=== PATIENT | male | born 1955 | race Caucasian/White ===

== ENCOUNTER 2020-02-02 02:55 | Inpatient (IN) | payer OTHER ==
[~2020-02-02] VITALS: Ht 182.9 cm; Wt 124.2 kg
[2020-02-02 03:00] VITALS: BP 128/89
[2020-02-02] MEDS ORDERED: VITA25006 PO (04:06)
[2020-02-02] MEDS ORDERED: sertaline (04:06)
[2020-02-02] MEDS ORDERED: EMPA10TA PO (04:06)
[2020-02-02] MEDS ORDERED: METF10007 PO (04:06)
[2020-02-02] MEDS ORDERED: CYAN25008 PO (04:06)
[2020-02-02] MEDS ORDERED: lisinopril (04:06)
[2020-02-02] MEDS ORDERED: atorvastatin (04:06)
[2020-02-02] MEDS ORDERED: OMEG100021 PO (04:06)
[2020-02-02] MEDS ORDERED: INSU100V13 SQ (04:06)
[2020-02-02] MEDS ORDERED: ASPI-630 PO (04:06)
[2020-02-02] MEDS ORDERED: VANCOMYCIN PER PHARMACY MC PRN (06:15)
[2020-02-02] MEDS ORDERED: AZITHRMYCN 500MG IVPB FOR OMNI 250 ML IV ONE (06:15)
--- NOTE | 2020-02-02 06:37 | NUR ---
Pharmacy Vancomycin Dosing Note S:Consulted to monitor and dose vancomycin started 02/02/20. O:CORNELIO HOLLAND is a 64 year old M with CAP . Height: 6 feet, 0 inches Weight: 124.2 kg [place] Body Weight: 77.60 Adjusted Body Weight: 96.16 Dosing Weight: Actual Other Antibiotics: AZITHROMYCIN 250 MG DAILY ZOSYN 3.375 GM Q6H LABS: Last BUN: 16 Last Creatinine: 0.9 Creatinine Clearance: >100 mL/min Last WBC: 7.6 Last Procalcitonin: Tmax (past 24 hours): Microbiology: I/O: Drug Levels: Last level: on at Last dose given 02/02/20 at 0800 Vancomycin Dosing: Loading Dose: 2000 mg x1 Dosing Weight: Actual Target Trough: 15-20 A: Based on: WT AND CRCL P: 1. Begin Vancomycin 1500 mg IV q8h 2. Follow up Trough level on 02/03/20 at 0730 3. Pharmacy will continue to monitor, follow and adjust therapy as needed. GUERLINE GARNER RPH, 02/02/20 [facility] Signed: 02/02/20 at 0637 by GUERLINE GARNER RPH PHA
[2020-02-02] MEDS: PIPERACILLIN/TAZOBACTAM 3.375 GM in IV NORMAL SALINE 50ML 50 ML IV SCH ×3 (07:00→17:30)
[2020-02-02 07:18] VITALS: BP 156/70
[2020-02-02] MEDS ORDERED: VANCOMYCIN 2 GM in IV NORMAL SALINE 500ML BAG 500 ML IV ONE (08:00)
[2020-02-02 08:40] VITALS: BP 156/70
[2020-02-02] MEDS ORDERED: FLU VACC QS 2020-21(6MOS+)/PF 0.5 ML SYRINGE. VAX IM ONE (09:00)
[2020-02-02] MEDS ORDERED: AZITHROMYCIN 500 MG in IV NORMAL SALINE 250ML 250 ML IV ONE (09:00)
[2020-02-02] MEDS: DEXAMETHASONE SOD PHOS 4 MG/ML VIAL IVP SCH (09:04)
[2020-02-02] MEDS ORDERED: DEXTROSE 50% 25 GM / 50ML DISP.SYRIN. IV PRN (10:30)
[2020-02-02 11:32] VITALS: BP 135/63
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
[2020-02-02] MEDS: guaiFENesin DM 200MG/20MG 10 ML SYRUP PO PRN ×2 (12:36→21:07)
[2020-02-02] MEDS: ACETAMINOPHEN 325 MG TABLET. PO PRN (12:36)
[2020-02-02] MEDS: INSULIN LISPRO 300 UNITS/3 ML VIAL. SQ SCH ×2 (12:49→17:32)
[2020-02-02 15:24] VITALS: BP 136/57
[2020-02-02] MEDS ORDERED: VANCOMYCIN 1.5 GM in IV NORMAL SALINE 500ML BAG 500 ML IV SCH (16:00)
--- NOTE | 2020-02-02 16:02 | PDOC ---
PULMONARY PROGRESS NOTES DATE: 02/02/20 TIME: 16:02 Vitals Vital Signs Date Time Temp Pulse Resp B/P (MAP) Pulse Ox O2 Delivery O2 Flow Rate FiO2 02/02/20 15:24 98.4 62 22 136/57 (83) 93 Nasal Cannula 4.0 98.4 Labs Laboratory Tests Test 02/02/20 07:56 02/02/20 10:37 02/02/20 16:00 Glucose (Fingerstick) 142 mg/dL (70-99) 176 mg/dL (70-99) 275 mg/dL (70-99) Laboratory Tests Test 02/02/20 07:56 02/02/20 10:37 02/02/20 16:00 Glucose (Fingerstick) 142 mg/dL (70-99) 176 mg/dL (70-99) 275 mg/dL (70-99) Medications Active Scripts Medications Dose Route/Sig Max Daily Dose Days Date Category [atorvastatin] 02/02/20 Reported Aspirin 81 Mg Tab.chew 81 Mg PO DAILY 02/02/20 Reported Noxifol-D3 2,500 Unit-1 mg Tab (Vitamin D3/Folic Acid) 2,500 Unit Tablet 1 Tab PO DAILY 30 02/02/20 Reported Vitamin B12 (Cyanocobalamin (Vitamin B-12)) 2,500 Mcg Tablet 1 Tab PO DAILY 30 02/02/20 Reported Fish Oil 1,000 mg Softgel ([place]-3/Dha/Epa/Fish Oil) 1,000 Mg Capsule 1,000 Mg PO DAILY 02/02/20 Reported [sertaline] 02/02/20 Reported [lisinopril] 02/02/20 Reported Jardiance (Empagliflozin) 10 Mg Tablet 10 Mg PO DAILY 02/02/20 Reported Metformin Hcl 1,000 Mg Tablet 1,000 Mg PO DAILYWBKFT 02/02/20 Reported Levemir (Insulin Detemir) 100 Unit/1 Ml Vial 65 Unit SQ HS 02/02/20 Reported Impression . Acute hypoxemic respiratory failure, COVID-19 positivity a week ago Agree with current medical management JOSE RECINOS MD Feb 02, 2020 16:02
[2020-02-02] MEDS: ENOXAPARIN 40 MG/0.4 ML SYRINGE. SQ SCH (21:04)
[2020-02-02] MEDS: LACTOBACILLUS RHAMNOSUS GG 1 CAPSULE. PO SCH (21:04)
[2020-02-02 21:11] VITALS: BP 115/65
--- NOTE | 2020-02-02 21:47 | CONS ---
DATE OF CONSULTATION: 02/02/2020 ATTENDING PHYSICIAN: Dr. Macias. CONSULTING PHYSICIAN: Jose Recinos M.D. REASON FOR CONSULTATION: The patient is seen in pulmonary consultation at the request of Dr. Macias for abnormal CT chest revealing ground-glass opacities. HISTORY OF PRESENT ILLNESS: The patient is a 64-year-old that was seen at the [facility] with increasing shortness of breath, nasal congestion and generalized weakness. He was tested SARS-CoV-2. He tested positive. He was not treated with any steroids. The patient presented with increasing shortness of breath at [facility] Emergency Room. He also had a fever and cough. Cough, mostly nonproductive. He was transferred to [place]. He underwent a CT angiogram, which revealed no evidence of pulmonary emboli. It did show ground-glass opacities. The patient had a fever yesterday of 102. He is currently on oxygen supplementation. He does not appear to be septic. He has been given Zithromax and Zosyn. He is also started on dexamethasone. PAST MEDICAL HISTORY: Significant for hypertension, hyperlipidemia, coronary artery disease, status post coronary artery bypass grafting, morbid obesity and obstructive sleep apnea, on CPAP. PAST SURGICAL HISTORY: As above. ALLERGIES: No known drug allergies. FAMILY HISTORY: Noncontributory. SOCIAL HISTORY: He is , lives in a [facility] [place] [facility], has one son, lives in [place]. He does not smoke. REVIEW OF SYSTEMS: As indicated above, otherwise, a 10-point system was reviewed and negative. PHYSICAL EXAMINATION: GENERAL: Morbid obese individual in no respiratory distress. VITAL SIGNS: Once again, he had a fever of 102.0 yesterday. HEENT: Eyes: The sclerae were nonicteric. NECK: Jugular venous distention was not elevated. LUNGS: Adequate flow with no wheezes. CARDIOVASCULAR: Regular rate and rhythm with S1, S2, no S3. ABDOMEN: Soft, obese. EXTREMITIES: No clubbing, cyanosis or edema. NEUROLOGICAL: The patient was awake, alert, following commands. A detailed neuro exam was not performed. LABORATORY DATA: Pending from [facility] revealed a white count of 7600, hemoglobin and hematocrit were noted. D-dimer was slightly elevated. IMPRESSION: 1. Acute hypoxemic respiratory failure. 2. COVID-19 pneumonia. 3. Possible bacterial pneumonia, gram negative/gram-positive. 4. Hypertension. 5. Morbid obesity. 6. [facility] PLAN: 1. Continue current antibiotics. 2. Steroids. 3. Deep venous thrombosis prophylaxis. 4. Oxygen supplementation. 5. Follow clinical course. I do appreciate the privilege in sharing in the patient's care. JOSE RECINOS MD DR: SABINA/gael JOB#: [id number] / [id number]
[2020-02-03] MEDS: PIPERACILLIN/TAZOBACTAM 3.375 GM in IV NORMAL SALINE 50ML 50 ML IV SCH ×4 (00:34→16:59)
[2020-02-03 00:39] VITALS: BP 135/76
[2020-02-03] MEDS: guaiFENesin DM 200MG/20MG 10 ML SYRUP PO PRN ×3 (02:46→19:30)
[2020-02-03 02:50] VITALS: BP 153/73
[2020-02-03 04:12] LABS: HEMATOCRIT 39.8 % (39.0-53.0); HEMOGLOBIN 13.5 g/dL (13.0-17.5); RED BLOOD COUNT 5.07 x10^6/uL (4.30-5.70); RED CELL DISTRIBUTION WIDTH 14.4 % (11.5-14.5); WHITE BLOOD COUNT 8.2 x10^3/uL (4.0-11.0)
[2020-02-03 05:35] LABS: ALBUMIN 2.6 g/dL (3.4-5.0); ALBUMIN/GLOBULIN RATIO 0.6 (1.0-1.7); C-REACTIVE PROTEIN 29.1 mg/L (0-3.3); CALCIUM 8.5 mg/dL (8.5-10.1); CREATININE 0.9 mg/dL (0.7-1.3); GFR 85.2; POTASSIUM 3.9 mmol/L (3.5-5.1); TOTAL BILIRUBIN 0.5 mg/dL (0.2-1.0); TOTAL PROTEIN 6.7 g/dL (6.4-8.2)
[2020-02-03 07:25] VITALS: BP 141/67
--- NOTE | 2020-02-03 07:56 | PDOC ---
Infectious Disease Note Vital Sign Vital Signs Vital Signs Date Time Temp Pulse Resp B/P (MAP) Pulse Ox O2 Delivery O2 Flow Rate FiO2 02/03/20 02:50 97.6 61 24 153/73 (99) 91 Nasal Cannula 4.0 97.6 Labs Lab Laboratory Tests Test 02/02/20 07:56 02/02/20 10:37 02/02/20 16:00 02/03/20 04:00 Glucose (Fingerstick) 142 mg/dL (70-99) 176 mg/dL (70-99) 275 mg/dL (70-99) White Blood Count 8.2 x10^3/uL (4.0-11.0) Red Blood Count 5.07 x10^6/uL (4.30-5.70) Hemoglobin 13.5 g/dL (13.0-17.5) Hematocrit 39.8 % (39.0-53.0) Mean Corpuscular Volume 79 fL (79-100) Mean Corpuscular Hemoglobin 27 pg (25-35) Mean Corpuscular Hemoglobin Concent 34 g/dL (31-37) Red Cell Distribution Width 14.4 % (11.5-14.5) Platelet Count 243 x10^3/uL (140-400) Sodium Level 138 mmol/L (136-145) Potassium Level 3.9 mmol/L (3.5-5.1) Chloride Level 103 mmol/L (98-107) Carbon Dioxide Level 27 mmol/L (21-32) Anion Gap 8 (6-14) Blood Urea Nitrogen 17 mg/dL (8-26) Creatinine 0.9 mg/dL (0.7-1.3) Estimated GFR (Cockcroft-Gault) 85.2 BUN/Creatinine Ratio 19 (6-20) Glucose Level 176 mg/dL (70-99) Calcium Level 8.5 mg/dL (8.5-10.1) Total Bilirubin 0.5 mg/dL (0.2-1.0) Aspartate Amino Transf (AST/SGOT) 32 U/L (15-37) Alanine Aminotransferase (ALT/SGPT) 44 U/L (16-63) Alkaline Phosphatase 34 U/L (46-116) C-Reactive Protein, Quantitative 29.1 mg/L (0-3.3) Total Protein 6.7 g/dL (6.4-8.2) Albumin 2.6 g/dL (3.4-5.0) Albumin/Globulin Ratio 0.6 (1.0-1.7) Objective Assessment Acute hypoxic resp failure o n 4 liter NC COVID + Obesity Fever Plan Plan of Care Cont abx. Azithromycin to po Type and screen as a precaution Check LDH and Tropronin I F/u labs and results Thank you # [id number] OLINDA BRUMFIELD MD Feb 03, 2020 07:56
[2020-02-03] MEDS: AZITHROMYCIN 250 MG TABLET. PO SCH (08:56)
[2020-02-03] MEDS: LACTOBACILLUS RHAMNOSUS GG 1 CAPSULE. PO SCH ×2 (08:56→22:17)
[2020-02-03] MEDS: ACETAMINOPHEN 325 MG TABLET. PO PRN (08:56)
[2020-02-03] MEDS: DEXAMETHASONE SOD PHOS 4 MG/ML VIAL IVP SCH (08:57)
[2020-02-03] MEDS: INSULIN LISPRO 300 UNITS/3 ML VIAL. SQ SCH ×3 (08:58→17:03)
[2020-02-03] MEDS ORDERED: AZITHROMYCIN 250 MG in IV NORMAL SALINE 250ML 250 ML IV SCH (09:00)
[2020-02-03] MEDS: ENOXAPARIN 40 MG/0.4 ML SYRINGE. SQ SCH ×2 (09:00→22:17)
[2020-02-03 11:03] VITALS: BP 145/65
--- NOTE | 2020-02-03 11:37 | PN ---
DATE: 02/03/2020 SUBJECTIVE: The patient is resting, slightly propped up in bed, in no apparent distress, awake, alert. On questioning him, he continued to have cough, is mostly dry. He has also complained of insomnia, but denied any chest pain or shortness of breath. Nursing staff stated that he did desaturate when he goes to sleep, generally maintained his oxygen saturation at 93-94% on 4 liters of oxygen by nasal cannula. PHYSICAL EXAMINATION: GENERAL: When I examined him, he looked well and was clearly in no apparent respiratory distress. No pallor, jaundice, cyanosis or thyromegaly. No jugular venous distention. No lower limb edema. VITAL SIGNS: His heart rate was 64, blood pressure was 141/67, temperature was 98.2, respiratory rate was 22 and oxygen saturation was 91% on 4 liters of oxygen. HEAD, EYES, EARS, NOSE AND THROAT: Showed normocephalic, atraumatic. NECK: Supple. HEART: Showed normal first and second heart sounds. No gallop, rub or murmur. CHEST: Showed central trachea, equal bilateral chest expansion, air entry. I could not really appreciate any crepitation or rhonchi. ABDOMEN: Distended, soft, nontender. NEUROLOGIC: He was sleepy, but arousable. All cranial nerves are intact. He moves extremities without difficulty. His intake over the last 24 hours was 360, output was 400. LABORATORY DATA: As of this morning, his white cell count was 8200, hemoglobin 13.5, hematocrit 39.8, MCV 79 and platelet count 243,000. Serum sodium was 138, potassium 3.9, chloride 103, bicarbonate 27, anion gap of 8, BUN 17, creatinine 0.9, estimated GFR was 85 mL per minute. His glucose was 176, calcium was 8.5. Total bilirubin, AST, ALT, alkaline phosphatase were normal. His C-reactive protein was 29. Total protein 6.7, albumin was 2.6. ASSESSMENT: 1. COVID-19 pneumonia. 2. Acute hypoxic respiratory failure. 3. Hypertension. 4. Hyperlipidemia. 5. Coronary artery disease, status post coronary artery bypass graft surgery. 6. Morbid obesity, obstructive sleep apnea, on CPAP. PLAN: To continue with IV antibiotic. Continue with DVT prophylaxis. Continue to monitor his blood sugar and adjust insulin as needed. CLIFFORD PERALTA MD DR: Lisbeth JOB#: [id number] / [id number]
--- NOTE | 2020-02-03 11:52 | PDOC ---
PULMONARY PROGRESS NOTES DATE: 02/03/20 TIME: 11:50 Subjective Patient is resting comfortably on 5 L nasal cannula He reports some shortness of breath, and a nonproductive cough he denies any chest pain Afebrile overnight No other concerns from nursing Vitals Vital Signs Date Time Temp Pulse Resp B/P (MAP) Pulse Ox O2 Delivery O2 Flow Rate FiO2 02/03/20 11:03 97.1 60 20 145/65 (91) 91 Nasal Cannula 5.0 97.1 ROS: No Nausea, No Chest Pain, No Abdominal Pain, No Increase Cough General: Alert Lungs: Crackles Cardiovascular: S1, S2 Abdomen: Soft, Non-tender Neuro Exam: Alert Extremities: No Edema Skin: Warm, Dry Labs Laboratory Tests Test 02/02/20 07:56 02/02/20 10:37 02/02/20 16:00 02/03/20 04:00 Glucose (Fingerstick) 142 mg/dL (70-99) 176 mg/dL (70-99) 275 mg/dL (70-99) White Blood Count 8.2 x10^3/uL (4.0-11.0) Red Blood Count 5.07 x10^6/uL (4.30-5.70) Hemoglobin 13.5 g/dL (13.0-17.5) Hematocrit 39.8 % (39.0-53.0) Mean Corpuscular Volume 79 fL (79-100) Mean Corpuscular Hemoglobin 27 pg (25-35) Mean Corpuscular Hemoglobin Concent 34 g/dL (31-37) Red Cell Distribution Width 14.4 % (11.5-14.5) Platelet Count 243 x10^3/uL (140-400) Sodium Level 138 mmol/L (136-145) Potassium Level 3.9 mmol/L (3.5-5.1) Chloride Level 103 mmol/L (98-107) Carbon Dioxide Level 27 mmol/L (21-32) Anion Gap 8 (6-14) Blood Urea Nitrogen 17 mg/dL (8-26) Creatinine 0.9 mg/dL (0.7-1.3) Estimated GFR (Cockcroft-Gault) 85.2 BUN/Creatinine Ratio 19 (6-20) Glucose Level 176 mg/dL (70-99) Calcium Level 8.5 mg/dL (8.5-10.1) Total Bilirubin 0.5 mg/dL (0.2-1.0) Aspartate Amino Transf (AST/SGOT) 32 U/L (15-37) Alanine Aminotransferase (ALT/SGPT) 44 U/L (16-63) Alkaline Phosphatase 34 U/L (46-116) Lactate Dehydrogenase 306 U/L (85-227) Troponin I Quantitative < 0.017 ng/mL (0.000-0.055) C-Reactive Protein, Quantitative 29.1 mg/L (0-3.3) Total Protein 6.7 g/dL (6.4-8.2) Albumin 2.6 g/dL (3.4-5.0) Albumin/Globulin Ratio 0.6 (1.0-1.7) Test 02/03/20 07:47 02/03/20 10:15 Glucose (Fingerstick) 165 mg/dL (70-99) 232 mg/dL (70-99) Laboratory Tests Test 02/02/20 16:00 02/03/20 04:00 02/03/20 07:47 02/03/20 10:15 Glucose (Fingerstick) 275 mg/dL (70-99) 165 mg/dL (70-99) 232 mg/dL (70-99) White Blood Count 8.2 x10^3/uL (4.0-11.0) Red Blood Count 5.07 x10^6/uL (4.30-5.70) Hemoglobin 13.5 g/dL (13.0-17.5) Hematocrit 39.8 % (39.0-53.0) Mean Corpuscular Volume 79 fL (79-100) Mean Corpuscular Hemoglobin 27 pg (25-35) Mean Corpuscular Hemoglobin Concent 34 g/dL (31-37) Red Cell Distribution Width 14.4 % (11.5-14.5) Platelet Count 243 x10^3/uL (140-400) Sodium Level 138 mmol/L (136-145) Potassium Level 3.9 mmol/L (3.5-5.1) Chloride Level 103 mmol/L (98-107) Carbon Dioxide Level 27 mmol/L (21-32) Anion Gap 8 (6-14) Blood Urea Nitrogen 17 mg/dL (8-26) Creatinine 0.9 mg/dL (0.7-1.3) Estimated GFR (Cockcroft-Gault) 85.2 BUN/Creatinine Ratio 19 (6-20) Glucose Level 176 mg/dL (70-99) Calcium Level 8.5 mg/dL (8.5-10.1) Total Bilirubin 0.5 mg/dL (0.2-1.0) Aspartate Amino Transf (AST/SGOT) 32 U/L (15-37) Alanine Aminotransferase (ALT/SGPT) 44 U/L (16-63) Alkaline Phosphatase 34 U/L (46-116) Lactate Dehydrogenase 306 U/L (85-227) Troponin I Quantitative < 0.017 ng/mL (0.000-0.055) C-Reactive Protein, Quantitative 29.1 mg/L (0-3.3) Total Protein 6.7 g/dL (6.4-8.2) Albumin 2.6 g/dL (3.4-5.0) Albumin/Globulin Ratio 0.6 (1.0-1.7) Medications Active Scripts Medications Dose Route/Sig Max Daily Dose Days Date Category [atorvastatin] 02/02/20 Reported Aspirin 81 Mg Tab.chew 81 Mg PO DAILY 02/02/20 Reported Noxifol-D3 2,500 Unit-1 mg Tab (Vitamin D3/Folic Acid) 2,500 Unit Tablet 1 Tab PO DAILY 30 02/02/20 Reported Vitamin B12 (Cyanocobalamin (Vitamin B-12)) 2,500 Mcg Tablet 1 Tab PO DAILY 30 02/02/20 Reported Fish Oil 1,000 mg Softgel ([place]-3/Dha/Epa/Fish Oil) 1,000 Mg Capsule 1,000 Mg PO DAILY 02/02/20 Reported [sertaline] 02/02/20 Reported [lisinopril] 02/02/20 Reported Jardiance (Empagliflozin) 10 Mg Tablet 10 Mg PO DAILY 02/02/20 Reported Metformin Hcl 1,000 Mg Tablet 1,000 Mg PO DAILYWBKFT 02/02/20 Reported Levemir (Insulin Detemir) 100 Unit/1 Ml Vial 65 Unit SQ HS 02/02/20 Reported Impression . IMPRESSION: 1. Acute hypoxemic respiratory failure. 2. COVID-19 pneumonia. 3. Possible bacterial pneumonia, gram negative/gram-positive. 4. Hypertension. 5. Morbid obesity. 6. [facility] Plan . PLAN: Continue supplemental oxygen as needed to keep oxygen saturations greater than 92% Continue steroids will need a 10-day course Continue antibiotics, per infectious disease Symptomatic treatment of fever and cough Follow clinical course DVT/GI prophylaxis JOSE RECINOS MD Feb 03, 2020 11:52
--- NOTE | 2020-02-03 12:44 | CONS ---
DATE OF CONSULTATION: 02/03/2020 INFECTIOUS DISEASE CONSULTATION NOTE LOCATION: The patient's room is 670. REQUESTING PHYSICIAN: Jenna Macias MD REASON FOR CONSULTATION: COVID pneumonia. HISTORY OF PRESENT ILLNESS: The patient is a pleasant 64-year-old gentleman who is a of the [employer], was in the [place] from [id number]. Recently, he has been staying in a homeless senior care as he is . He states about 9 days ago, he began to have fever and presented to the [facility] and stated he has got a positive COVID test and then was notified the following Tuesday that he was positive. He states he was isolated in the homeless senior care. He did have cough. It was dry in nature. He had occasional nausea, but he did not have any diarrhea and denies any loss of taste or smell. He began to have worsening symptoms, was evaluated in the Emergency Room over at the [facility] and was subsequently has ended up at [facility]. A chest x-ray showed no acute abnormalities; however, CT scan showed moderate peripheral and basilar prominent ground-glass opacities. He has been placed on azithromycin and Zosyn. He did receive a dose of vancomycin, but the vancomycin has been discontinued. He is also on steroids. Currently, he is sitting upright in bed. He has somewhat of a nagging cough, but is dry. No sinus issues. He denies any previous episodes of pneumonia, UTIs, or skin infections. He denies any tobacco. No vaping. No chest pain. No dysuria, frequency or urgency. PAST MEDICAL HISTORY: Positive for hypertension, hyperlipidemia, morbid obesity, obstructive sleep apnea, also coronary artery disease. PAST SURGICAL HISTORY: Positive for coronary artery bypass grafting. REVIEW OF SYSTEMS: Otherwise negative except for mentioned above. ALLERGIES: No known drug allergies. SOCIAL HISTORY: He is , lives in a homeless senior care. Again, no tobacco, alcohol, or recreational drugs and served in the [employer]. FAMILY HISTORY: Noncontributory. CURRENT MEDICATIONS: Include azithromycin, Zosyn. Again, he received the vancomycin. He is on dexamethasone, Lovenox, guaifenesin, insulin, lactobacillus. PHYSICAL EXAMINATION: VITAL SIGNS: He did have a temperature up to 102, currently 97.6, pulse 61, respirations 24, blood pressure 153/73. He is on 4 liters nasal cannula satting 91%. CONSTITUTIONAL: He is pleasant, cooperative. He is in no acute distress. HEENT: Pupils are equal and reactive. He has normal conjunctivae. Oral cavity, oropharynx was clear. NECK: Supple. Good range of motion. LUNGS: Decreased in the bases. HEART: S1, S2. ABDOMEN: Morbidly obese, soft, nontender, no guarding, no rebound. EXTREMITIES: Without clubbing, cyanosis or gross edema. SKIN: Warm to touch without signs of rash. He does have tattoos. NEUROLOGIC: He is nonfocal. PSYCHIATRIC: Affect is appropriate. LABORATORY VALUES: This morning, white count 8.2, hemoglobin 13.5, platelets of 243. Creatinine of 0.9. AST was 32, ALT 44. C-reactive protein 29.1. There are no radiological studies. IMPRESSION: 1. Acute hypoxic respiratory failure, on 4 liters nasal cannula. 2. COVID positive. 3. Obesity. 4. Fever. RECOMMENDATIONS: For now, we will continue antibiotics, change his IV azithromycin to p.o. We will type and screen him as a precaution in case he begins to rapidly decline and may need plasma. We will also check LDH and troponin I. We will follow up labs. Thank you for allowing me to participate in the patient's care. If you have any questions, please do not hesitate to contact me. OLINDA BRUMFIELD MD DR: ELMA/gael JOB#: [id number] / [id number] URIEL
[2020-02-03 15:15] VITALS: BP 138/74
[2020-02-03 19:15] VITALS: BP 159/75
[2020-02-03] MEDS ORDERED: traZODone 50 MG TABLET. PO PRN (21:45)
[2020-02-04] MEDS: PIPERACILLIN/TAZOBACTAM 3.375 GM in IV NORMAL SALINE 50ML 50 ML IV SCH ×4 (00:57→17:41)
[2020-02-04] MEDS: guaiFENesin DM 200MG/20MG 10 ML SYRUP PO PRN ×3 (00:57→21:36)
[2020-02-04 03:59] VITALS: BP 134/63
[2020-02-04 06:12] LABS: ALBUMIN 2.4 g/dL (3.4-5.0); ALBUMIN/GLOBULIN RATIO 0.6 (1.0-1.7); CALCIUM 8.6 mg/dL (8.5-10.1); CREATININE 1.1 mg/dL (0.7-1.3); GFR 67.6; POTASSIUM 3.6 mmol/L (3.5-5.1); TOTAL BILIRUBIN 0.4 mg/dL (0.2-1.0); TOTAL PROTEIN 6.5 g/dL (6.4-8.2)
[2020-02-04 06:16] LABS: HEMOGLOBIN 13.3 g/dL (13.0-17.5); RED BLOOD COUNT 5.08 x10^6/uL (4.30-5.70); RED CELL DISTRIBUTION WIDTH 14.3 % (11.5-14.5); WHITE BLOOD COUNT 7.9 x10^3/uL (4.0-11.0)
[2020-02-04 07:15] VITALS: BP 144/70
[2020-02-04] MEDS: AZITHROMYCIN 250 MG TABLET. PO SCH (08:28)
[2020-02-04] MEDS: ACETAMINOPHEN 325 MG TABLET. PO PRN (08:28)
[2020-02-04] MEDS: DEXAMETHASONE SOD PHOS 4 MG/ML VIAL IVP SCH (08:28)
[2020-02-04] MEDS: ENOXAPARIN 40 MG/0.4 ML SYRINGE. SQ SCH ×2 (08:28→21:37)
[2020-02-04] MEDS: LACTOBACILLUS RHAMNOSUS GG 1 CAPSULE. PO SCH ×2 (08:28→21:37)
[2020-02-04] MEDS: INSULIN LISPRO 300 UNITS/3 ML VIAL. SQ SCH ×4 (08:43→16:59)
--- NOTE | 2020-02-04 09:00 | PDOC ---
Infectious Disease Note Subjective Subjective Feeling better. No F/C/s/n/V/D Occ cough. Eating ROS ROS o/w neg Vital Sign Vital Signs Vital Signs Date Time Temp Pulse Resp B/P (MAP) Pulse Ox O2 Delivery O2 Flow Rate FiO2 02/04/20 07:15 96.9 59 20 144/70 (94) 90 Nasal Cannula 5.0 96.9 Physical Exam PHYSICAL EXAM CONSTITUTIONAL: He is pleasant, cooperative. He is in no acute distress. Looks HEENT: Pupils are equal and reactive. He has normal conjunctivae. Oral cavity, oropharynx was clear. NECK: Supple. Good range of motion. LUNGS: Decreased in the bases. HEART: S1, S2. ABDOMEN: Morbidly obese, soft, nontender, no guarding, no rebound. EXTREMITIES: Without clubbing, cyanosis or gross edema. SKIN: Warm to touch without signs of rash. He does have tattoos. NEUROLOGIC: He is nonfocal. PSYCHIATRIC: Affect is appropriate. Labs Lab Laboratory Tests Test 02/03/20 10:15 02/03/20 16:02 02/03/20 21:21 02/04/20 05:15 Glucose (Fingerstick) 232 mg/dL (70-99) 253 mg/dL (70-99) 232 mg/dL (70-99) White Blood Count 7.9 x10^3/uL (4.0-11.0) Red Blood Count 5.08 x10^6/uL (4.30-5.70) Hemoglobin 13.3 g/dL (13.0-17.5) Hematocrit 40.0 % (39.0-53.0) Mean Corpuscular Volume 79 fL (79-100) Mean Corpuscular Hemoglobin 26 pg (25-35) Mean Corpuscular Hemoglobin Concent 33 g/dL (31-37) Red Cell Distribution Width 14.3 % (11.5-14.5) Platelet Count 292 x10^3/uL (140-400) D-Dimer (Macy) 0.69 ug/mlFEU (0.00-0.50) Sodium Level 139 mmol/L (136-145) Potassium Level 3.6 mmol/L (3.5-5.1) Chloride Level 104 mmol/L (98-107) Carbon Dioxide Level 25 mmol/L (21-32) Anion Gap 10 (6-14) Blood Urea Nitrogen 15 mg/dL (8-26) Creatinine 1.1 mg/dL (0.7-1.3) Estimated GFR (Cockcroft-Gault) 67.6 BUN/Creatinine Ratio 14 (6-20) Glucose Level 208 mg/dL (70-99) Calcium Level 8.6 mg/dL (8.5-10.1) Total Bilirubin 0.4 mg/dL (0.2-1.0) Aspartate Amino Transf (AST/SGOT) 30 U/L (15-37) Alanine Aminotransferase (ALT/SGPT) 47 U/L (16-63) Alkaline Phosphatase 33 U/L (46-116) Total Protein 6.5 g/dL (6.4-8.2) Albumin 2.4 g/dL (3.4-5.0) Albumin/Globulin Ratio 0.6 (1.0-1.7) Test 02/04/20 07:47 Glucose (Fingerstick) 177 mg/dL (70-99) Objective Assessment Acute hypoxic resp failure on 5 liter NC COVID + Obesity Fever Plan Plan of Care Cont abx. Azithromycin to po Typed and screen as a precaution F/u labs and results OLINDA BRUMFIELD MD Feb 04, 2020 08:59
--- NOTE | 2020-02-04 10:58 | PN ---
DATE: 02/04/2020 SUBJECTIVE: The patient is resting, slightly propped up in bed, in no apparent distress. On questioning him, his main complaint is dry cough. Nursing staff stated that as long as he is resting, his oxygen saturation is 96% on 5 liters; however, whenever he changes his position or stands up or do any exertion his oxygen saturation plummets to 85% or less. The patient himself denied any chest pain. The cough is mostly dry, hacking. PHYSICAL EXAMINATION: GENERAL: When I examined him, he looked well and was clearly in no apparent respiratory distress. No pallor, jaundice, cyanosis or thyromegaly. No jugular venous distention. No limb edema. VITAL SIGNS: His heart rate was 59, blood pressure was 144/70, temperature 96.9, respiratory rate was 20, and oxygen saturation was 90% on 5 liters of oxygen by nasal cannula. HEENT: Showed normocephalic, atraumatic. NECK: Supple. HEART: Showed normal first and second heart sounds. No gallop, rub or murmur. CHEST: Clear to auscultation. No crepitation or rhonchi. ABDOMEN: Distended, soft, nontender. No guarding or rigidity. No organomegaly. All hernial orifice intact. Bowel sounds normal. NEUROLOGIC: He was awake, alert, responding appropriately. All cranial nerves are intact. He moves extremities without difficulty. His intake was 1150, output was 1500. LABORATORY WORK: This morning showed his white cell count was 7900, hemoglobin 13, hematocrit 40, MCV 79 and platelet count 292,000. Serum sodium was 139, potassium 3.6, chloride 104, bicarbonate 25, anion gap of 10, BUN 15, creatinine 1.1, estimated GFR was 68 mL per minute. His glucose was 108, calcium was 8.6. Total bilirubin, AST, ALT, alkaline phosphatase were normal. Total protein was 6.5, albumin 2.4. His D-dimer was 0.69. His C-reactive protein was 29.1 mg/dL. ASSESSMENT: 1. COVID-19 pneumonia. 2. Acute hypoxic respiratory failure. 3. Hypertension. 4. Hyperlipidemia. 5. Coronary artery disease, status post coronary artery bypass graft surgery. 6. Morbid obesity, obstructive sleep apnea, on CPAP. PLAN: To continue with azithromycin. Continue with Lovenox. Continue to monitor his blood sugar and adjust the insulin as needed. Continue with Zosyn. Continue with dexamethasone. CLIFFORD PERALTA MD DR: ANTHONY/gael JOB#: [id number] / [id number]
[2020-02-04 11:16] VITALS: BP 137/70
[2020-02-04] MEDS: ACETAMINOPHEN/CODEINE 300/30MG TABLET. PO PRN ×2 (12:01→21:37)
--- NOTE | 2020-02-04 12:13 | PDOC ---
PULMONARY PROGRESS NOTES DATE: 02/04/20 TIME: 12:12 Subjective Patient is resting comfortably on 5 L nasal cannula Continues to have nonproductive nagging cough, denies shortness of breath Afebrile overnight No other concerns from nursing Vitals Vital Signs Date Time Temp Pulse Resp B/P (MAP) Pulse Ox O2 Delivery O2 Flow Rate FiO2 02/04/20 11:16 97.2 56 22 137/70 (92) 95 Nasal Cannula 5.0 97.2 ROS: No Nausea, No Chest Pain, No Abdominal Pain, No Increase Cough General: Alert Lungs: Crackles Cardiovascular: S1, S2 Abdomen: Soft, Non-tender Neuro Exam: Alert Extremities: No Edema Skin: Warm, Dry Labs Laboratory Tests Test 02/02/20 16:00 02/03/20 04:00 02/03/20 07:47 02/03/20 10:15 Glucose (Fingerstick) 275 mg/dL (70-99) 165 mg/dL (70-99) 232 mg/dL (70-99) White Blood Count 8.2 x10^3/uL (4.0-11.0) Red Blood Count 5.07 x10^6/uL (4.30-5.70) Hemoglobin 13.5 g/dL (13.0-17.5) Hematocrit 39.8 % (39.0-53.0) Mean Corpuscular Volume 79 fL (79-100) Mean Corpuscular Hemoglobin 27 pg (25-35) Mean Corpuscular Hemoglobin Concent 34 g/dL (31-37) Red Cell Distribution Width 14.4 % (11.5-14.5) Platelet Count 243 x10^3/uL (140-400) Sodium Level 138 mmol/L (136-145) Potassium Level 3.9 mmol/L (3.5-5.1) Chloride Level 103 mmol/L (98-107) Carbon Dioxide Level 27 mmol/L (21-32) Anion Gap 8 (6-14) Blood Urea Nitrogen 17 mg/dL (8-26) Creatinine 0.9 mg/dL (0.7-1.3) Estimated GFR (Cockcroft-Gault) 85.2 BUN/Creatinine Ratio 19 (6-20) Glucose Level 176 mg/dL (70-99) Calcium Level 8.5 mg/dL (8.5-10.1) Total Bilirubin 0.5 mg/dL (0.2-1.0) Aspartate Amino Transf (AST/SGOT) 32 U/L (15-37) Alanine Aminotransferase (ALT/SGPT) 44 U/L (16-63) Alkaline Phosphatase 34 U/L (46-116) Lactate Dehydrogenase 306 U/L (85-227) Troponin I Quantitative < 0.017 ng/mL (0.000-0.055) C-Reactive Protein, Quantitative 29.1 mg/L (0-3.3) Total Protein 6.7 g/dL (6.4-8.2) Albumin 2.6 g/dL (3.4-5.0) Albumin/Globulin Ratio 0.6 (1.0-1.7) Test 02/03/20 16:02 02/03/20 21:21 02/04/20 05:15 02/04/20 07:47 Glucose (Fingerstick) 253 mg/dL (70-99) 232 mg/dL (70-99) 177 mg/dL (70-99) White Blood Count 7.9 x10^3/uL (4.0-11.0) Red Blood Count 5.08 x10^6/uL (4.30-5.70) Hemoglobin 13.3 g/dL (13.0-17.5) Hematocrit 40.0 % (39.0-53.0) Mean Corpuscular Volume 79 fL (79-100) Mean Corpuscular Hemoglobin 26 pg (25-35) Mean Corpuscular Hemoglobin Concent 33 g/dL (31-37) Red Cell Distribution Width 14.3 % (11.5-14.5) Platelet Count 292 x10^3/uL (140-400) D-Dimer (Macy) 0.69 ug/mlFEU (0.00-0.50) Sodium Level 139 mmol/L (136-145) Potassium Level 3.6 mmol/L (3.5-5.1) Chloride Level 104 mmol/L (98-107) Carbon Dioxide Level 25 mmol/L (21-32) Anion Gap 10 (6-14) Blood Urea Nitrogen 15 mg/dL (8-26) Creatinine 1.1 mg/dL (0.7-1.3) Estimated GFR (Cockcroft-Gault) 67.6 BUN/Creatinine Ratio 14 (6-20) Glucose Level 208 mg/dL (70-99) Calcium Level 8.6 mg/dL (8.5-10.1) Total Bilirubin 0.4 mg/dL (0.2-1.0) Aspartate Amino Transf (AST/SGOT) 30 U/L (15-37) Alanine Aminotransferase (ALT/SGPT) 47 U/L (16-63) Alkaline Phosphatase 33 U/L (46-116) Total Protein 6.5 g/dL (6.4-8.2) Albumin 2.4 g/dL (3.4-5.0) Albumin/Globulin Ratio 0.6 (1.0-1.7) Test 02/04/20 10:22 Glucose (Fingerstick) 184 mg/dL (70-99) Laboratory Tests Test 02/03/20 16:02 02/03/20 21:21 02/04/20 05:15 02/04/20 07:47 Glucose (Fingerstick) 253 mg/dL (70-99) 232 mg/dL (70-99) 177 mg/dL (70-99) White Blood Count 7.9 x10^3/uL (4.0-11.0) Red Blood Count 5.08 x10^6/uL (4.30-5.70) Hemoglobin 13.3 g/dL (13.0-17.5) Hematocrit 40.0 % (39.0-53.0) Mean Corpuscular Volume 79 fL (79-100) Mean Corpuscular Hemoglobin 26 pg (25-35) Mean Corpuscular Hemoglobin Concent 33 g/dL (31-37) Red Cell Distribution Width 14.3 % (11.5-14.5) Platelet Count 292 x10^3/uL (140-400) D-Dimer (Macy) 0.69 ug/mlFEU (0.00-0.50) Sodium Level 139 mmol/L (136-145) Potassium Level 3.6 mmol/L (3.5-5.1) Chloride Level 104 mmol/L (98-107) Carbon Dioxide Level 25 mmol/L (21-32) Anion Gap 10 (6-14) Blood Urea Nitrogen 15 mg/dL (8-26) Creatinine 1.1 mg/dL (0.7-1.3) Estimated GFR (Cockcroft-Gault) 67.6 BUN/Creatinine Ratio 14 (6-20) Glucose Level 208 mg/dL (70-99) Calcium Level 8.6 mg/dL (8.5-10.1) Total Bilirubin 0.4 mg/dL (0.2-1.0) Aspartate Amino Transf (AST/SGOT) 30 U/L (15-37) Alanine Aminotransferase (ALT/SGPT) 47 U/L (16-63) Alkaline Phosphatase 33 U/L (46-116) Total Protein 6.5 g/dL (6.4-8.2) Albumin 2.4 g/dL (3.4-5.0) Albumin/Globulin Ratio 0.6 (1.0-1.7) Test 02/04/20 10:22 Glucose (Fingerstick) 184 mg/dL (70-99) Medications Active Scripts Medications Dose Route/Sig Max Daily Dose Days Date Category [atorvastatin] 02/02/20 Reported Aspirin 81 Mg Tab.chew 81 Mg PO DAILY 02/02/20 Reported Noxifol-D3 2,500 Unit-1 mg Tab (Vitamin D3/Folic Acid) 2,500 Unit Tablet 1 Tab PO DAILY 30 02/02/20 Reported Vitamin B12 (Cyanocobalamin (Vitamin B-12)) 2,500 Mcg Tablet 1 Tab PO DAILY 30 02/02/20 Reported Fish Oil 1,000 mg Softgel ([place]-3/Dha/Epa/Fish Oil) 1,000 Mg Capsule 1,000 Mg PO DAILY 02/02/20 Reported [sertaline] 02/02/20 Reported [lisinopril] 02/02/20 Reported Jardiance (Empagliflozin) 10 Mg Tablet 10 Mg PO DAILY 02/02/20 Reported Metformin Hcl 1,000 Mg Tablet 1,000 Mg PO [id number] 02/02/20 Reported Levemir (Insulin Detemir) 100 Unit/1 Ml Vial 65 Unit SQ HS 02/02/20 Reported Impression . IMPRESSION: 1. Acute hypoxemic respiratory failure. 2. COVID-19 pneumonia. 3. Possible bacterial pneumonia, gram negative/gram-positive. 4. Hypertension. 5. Morbid obesity. 6. [facility] Plan . PLAN: Continue supplemental oxygen as needed to keep oxygen saturations greater than 92% Continue steroids will need a 10-day course Continue antibiotics, per infectious disease Type and cross for potential need for plasma Will add guaifenesin Symptomatic treatment of fever and cough Follow clinical course DVT/GI prophylaxis JOSE RECINOS MD Feb 04, 2020 12:13
[2020-02-04 15:22] VITALS: BP 179/76
--- NOTE | 2020-02-04 15:45 | RAD ---
Portable chest x-ray compared to similar examination from February 01, 2020 for worsening hypoxia, covid Positive. FINDINGS: There are developing peripheral infiltrates in the right midlung laterally, right medial base, and left costophrenic region. Central vascular crowding is also more notable, and may reflect developing pulmonary edema. Impression: 1. Developing peripheral infiltrates bilaterally. 2. Developing central vascular crowding/pulmonary edema. Electronically signed by: Maxwell Justice MD (02/04/2020 3:42 PM) [id number]
--- NOTE | 2020-02-04 16:54 | NUR ---
SW following. Spoke with RN and reviewed chart. Pt currently on 5l 02, IV Zosyn, ADA diet. Patient is COVID positive. Spoke with patient who stated he is a homeless and has been staying at the [facility] ([phone]). Pt stated that once he got COVID he was transferred to the [facility] in [place] and that it is being [facility]. Pt stated he does not want to go to a SNU and plans to return to the hot upon discharge. Pt may need a 6 min walk prior to discharge to determine any home 02 needs. DILLON following. [facility] [address] [place] [id number]
[2020-02-04] MEDS ORDERED: INSULIN GLARGINE SYRINGE. SQ SCH (21:00)
[2020-02-04] MEDS: FAMOTIDINE 20 MG TABLET. PO SCH (21:40)
[2020-02-04 23:54] VITALS: BP 158/71
[2020-02-05 03:00] VITALS: BP 176/79
[2020-02-05] MEDS: PIPERACILLIN/TAZOBACTAM 3.375 GM in IV NORMAL SALINE 50ML 50 ML IV SCH ×2 (06:11)
[2020-02-05 07:05] VITALS: BP 156/83
[2020-02-05] MEDS: INSULIN LISPRO 300 UNITS/3 ML VIAL. SQ SCH ×4 (08:00→13:23)
[2020-02-05] MEDS: DEXAMETHASONE SOD PHOS 4 MG/ML VIAL IVP SCH (09:00)
[2020-02-05] MEDS: ENOXAPARIN 40 MG/0.4 ML SYRINGE. SQ SCH (09:12)
[2020-02-05] MEDS: FAMOTIDINE 20 MG TABLET. PO SCH (09:13)
[2020-02-05] MEDS: LACTOBACILLUS RHAMNOSUS GG 1 CAPSULE. PO SCH (09:13)
[2020-02-05] MEDS: AZITHROMYCIN 250 MG TABLET. PO SCH (09:13)
--- NOTE | 2020-02-05 10:31 | PDOC ---
Infectious Disease Note Subjective Subjective Feeling better. No F/C/s/n/V/D Occ cough. Eating Vital Sign Vital Signs Vital Signs Date Time Temp Pulse Resp B/P (MAP) Pulse Ox O2 Delivery O2 Flow Rate FiO2 02/05/20 07:05 97.8 52 22 156/83 (107) 93 Nasal Cannula 5.0 97.8 Physical Exam PHYSICAL EXAM CONSTITUTIONAL: He is pleasant, cooperative. He is in no acute distress. Looks HEENT: Pupils are equal and reactive. He has normal conjunctivae. Oral cavity, oropharynx was clear. NECK: Supple. Good range of motion. LUNGS: Decreased in the bases. HEART: S1, S2. ABDOMEN: Morbidly obese, soft, nontender, no guarding, no rebound. EXTREMITIES: Without clubbing, cyanosis or gross edema. SKIN: Warm to touch without signs of rash. He does have tattoos. NEUROLOGIC: He is nonfocal. PSYCHIATRIC: Affect is appropriate. Labs Lab Laboratory Tests Test 02/04/20 16:27 02/05/20 08:02 Glucose (Fingerstick) 372 mg/dL (70-99) 120 mg/dL (70-99) Micro CXR 02/03 Impression: 1. Developing peripheral infiltrates bilaterally. 2. Developing central vascular crowding/pulmonary edema. Objective Assessment Acute hypoxic resp failure on 4 liter NC COVID + Obesity Fever Plan Plan of Care D/c Zosyn and begin Augmentin Discont Azithromycin to po 02/05 Typed and screen as a precaution F/u labs and results OLINDA BRUMFIELD MD Feb 05, 2020 10:31
[2020-02-05 11:05] VITALS: BP 165/85
--- NOTE | 2020-02-05 12:58 | PDOC ---
PULMONARY PROGRESS NOTES DATE: 02/05/20 TIME: 12:57 Subjective Patient is resting comfortably on 5 L nasal cannula Continues to have nonproductive nagging cough, denies shortness of breath Afebrile overnight No other concerns from nursing Vitals Vital Signs Date Time Temp Pulse Resp B/P (MAP) Pulse Ox O2 Delivery O2 Flow Rate FiO2 02/05/20 11:05 98.1 51 23 165/85 (111) 92 Nasal Cannula 5.0 98.1 ROS: No Nausea, No Chest Pain, No Abdominal Pain, No Increase Cough General: Alert Lungs: Crackles Cardiovascular: S1, S2 Abdomen: Soft, Non-tender Neuro Exam: Alert Extremities: No Edema Skin: Warm, Dry Labs Laboratory Tests Test 02/03/20 16:02 02/03/20 21:21 02/04/20 05:15 02/04/20 07:47 Glucose (Fingerstick) 253 mg/dL (70-99) 232 mg/dL (70-99) 177 mg/dL (70-99) White Blood Count 7.9 x10^3/uL (4.0-11.0) Red Blood Count 5.08 x10^6/uL (4.30-5.70) Hemoglobin 13.3 g/dL (13.0-17.5) Hematocrit 40.0 % (39.0-53.0) Mean Corpuscular Volume 79 fL (79-100) Mean Corpuscular Hemoglobin 26 pg (25-35) Mean Corpuscular Hemoglobin Concent 33 g/dL (31-37) Red Cell Distribution Width 14.3 % (11.5-14.5) Platelet Count 292 x10^3/uL (140-400) D-Dimer (Macy) 0.69 ug/mlFEU (0.00-0.50) Sodium Level 139 mmol/L (136-145) Potassium Level 3.6 mmol/L (3.5-5.1) Chloride Level 104 mmol/L (98-107) Carbon Dioxide Level 25 mmol/L (21-32) Anion Gap 10 (6-14) Blood Urea Nitrogen 15 mg/dL (8-26) Creatinine 1.1 mg/dL (0.7-1.3) Estimated GFR (Cockcroft-Gault) 67.6 BUN/Creatinine Ratio 14 (6-20) Glucose Level 208 mg/dL (70-99) Calcium Level 8.6 mg/dL (8.5-10.1) Total Bilirubin 0.4 mg/dL (0.2-1.0) Aspartate Amino Transf (AST/SGOT) 30 U/L (15-37) Alanine Aminotransferase (ALT/SGPT) 47 U/L (16-63) Alkaline Phosphatase 33 U/L (46-116) Total Protein 6.5 g/dL (6.4-8.2) Albumin 2.4 g/dL (3.4-5.0) Albumin/Globulin Ratio 0.6 (1.0-1.7) Test 02/04/20 10:22 02/04/20 16:27 02/05/20 08:02 02/05/20 11:52 Glucose (Fingerstick) 184 mg/dL (70-99) 372 mg/dL (70-99) 120 mg/dL (70-99) 123 mg/dL (70-99) Laboratory Tests Test 02/04/20 16:27 02/05/20 08:02 02/05/20 11:52 Glucose (Fingerstick) 372 mg/dL (70-99) 120 mg/dL (70-99) 123 mg/dL (70-99) Medications Active Scripts Medications Dose Route/Sig Max Daily Dose Days Date Category [atorvastatin] 02/02/20 Reported Aspirin 81 Mg Tab.chew 81 Mg PO DAILY 02/02/20 Reported Noxifol-D3 2,500 Unit-1 mg Tab (Vitamin D3/Folic Acid) 2,500 Unit Tablet 1 Tab PO DAILY 30 02/02/20 Reported Vitamin B12 (Cyanocobalamin (Vitamin B-12)) 2,500 Mcg Tablet 1 Tab PO DAILY 30 02/02/20 Reported Fish Oil 1,000 mg Softgel (Melvin-3/Dha/Epa/Fish Oil) 1,000 Mg Capsule 1,000 Mg PO DAILY 02/02/20 Reported [sertaline] 02/02/20 Reported [lisinopril] 02/02/20 Reported Jardiance (Empagliflozin) 10 Mg Tablet 10 Mg PO DAILY 02/02/20 Reported Metformin Hcl 1,000 Mg Tablet 1,000 Mg PO [id number] 02/02/20 Reported Levemir (Insulin Detemir) 100 Unit/1 Ml Vial 65 Unit SQ HS 02/02/20 Reported Impression . IMPRESSION: 1. Acute hypoxemic respiratory failure. 2. COVID-19 pneumonia. 3. Possible bacterial pneumonia, gram negative/gram-positive. 4. Hypertension. 5. Morbid obesity. 6. [facility] Plan . PLAN: Continue supplemental oxygen as needed to keep oxygen saturations greater than 92% Continue steroids will need a 10-day course Continue antibiotics, per infectious disease Type and cross for potential need for plasma guaifenesin Symptomatic treatment of fever and cough Follow clinical course DVT/GI prophylaxis LUKE JACOBSEN MD Feb 05, 2020 12:58
--- NOTE | 2020-02-05 15:40 | NUR ---
Pt left hospital AMA. I explained the risks to the patient about leaving to soon. Pt had discharge orders but was not willing to wait for 6 min walk. I spoke to Dr Macias and he said to review AMA paperwork and after pt signs it, let him go. Done and pt was taken home by skylar to [facility], [address] [place] [address] Room 308
--- NOTE | 2020-02-05 17:33 | NUR ---
SW following. Spoke with RN and reviewed chart. Patient discharged AMA back to [facility] hotel. No further SW needs.
[2020-02-05] MEDS ORDERED: AMOXICILLIN/K CLAV 875/125MG TABLET. PO SCH (21:00)
== END 2020-02-05 15:40 | disposition left against medical advice (07) | DRG 177 ==
LOC: 6 SOUTH 02:55
PROVIDERS: ADMIT Internal Medicine; ATTEND Internal Medicine
DX: U07.1 COVID-19 (principal); J96.01 Acute respiratory failure with hypoxia; J12.89 Other viral pneumonia; J15.6 Pneumonia due to other Gram-negative bacteria; E66.01 Morbid (severe) obesity due to excess calories; E78.5 Hyperlipidemia, unspecified; G47.33 Obstructive sleep apnea (adult) (pediatric); I10 Essential (primary) hypertension; Z53.29 Procedure and treatment not carried out because of patient's decision for other reasons; I25.10 Atherosclerotic heart disease of native coronary artery without angina pectoris; Z59.0 Homelessness; Z95.1 Presence of aortocoronary bypass graft; Z68.37 Body mass index [BMI] 37.0-37.9, adult
CPT/HCPCS: 36415; 71045; 80053; 82962; 83615; 84484; 85027; 85379; 86140; 86850; 86900; 86901; 90471; 90686; J0456; J1100; J1650; J1815; J2543; J3370; J7040; J7050; G0378; J7030